=== PATIENT | male | born 1980 ===

== ENCOUNTER 2020-04-24 15:22 | Emergency (ER) | payer OTHER ==
[~2020-04-24] VITALS: Ht 175.3 cm; Wt 90.7 kg
[2020-04-24] MEDS ORDERED: COZAAR50 MG (15:55)
== END 2020-04-24 18:38 | disposition home or self-care (01) ==
LOC: ER 15:22
DX: S61.227A Laceration with foreign body of left little finger without damage to nail, initial encounter (principal); W26.8XXA Contact with other sharp object(s), not elsewhere classified, initial encounter; Y93.55 Activity, bike riding; Y92.413 State road as the place of occurrence of the external cause; Y99.8 Other external cause status